=== PATIENT | male | born 1995 | race American Indian/Alaskan Native ===

== ENCOUNTER 2017-09-06 02:17 | Emergency (ER) | payer SELFPAY ==
[2017-09-06 03:16] LABS: HEMOGLOBIN 14.4 g/dL (12.0-18.0); MEAN CELL VOLUME 92.4 fl (80.0-94.0); MEAN CORPUSCULAR HEMOGLOBIN 31.6 pg (27.0-31.0); MEAN CORPUSCULAR HGB CONC 34.2 g/dL (33.0-37.0); RBC 4.55 Mil/uL (4.40-5.90); WHITE BLOOD COUNT 8.4 K/uL (4.8-10.8)
[2017-09-06 03:18] LABS: ALB/GLOB RATIO 1.1 (1.0-2.1); ALBUMIN 4.2 g/dL (3.5-5.0); ALT/SGPT 36 U/L (21-72); AST/SGOT 36 U/L (17-59); BLOOD UREA NITROGEN 10 mg/dl (9-20); CALCIUM 9.3 mg/dL (8.4-10.2); GFR AFRICAN-AMERICAN > 60; GFR NON-AFRICAN AMERICAN > 60
--- NOTE | 2017-09-06 05:33 | ED PDOC ---
HPI: General Adult Time Seen by Provider: 09/06/17 02:19 Chief Complaint (Nursing): Alcohol Ingestion Chief Complaint (Provider): Denies complaint History Per: Patient History/Exam Limitations: no limitations Onset/Duration Of Symptoms: Hrs Have you had recent travel within the past 21 days to any of the following countries: [place], [place], [place] or [place]?: No Additional Complaint(s): Pt states that he drank today and vomited inside of an ub[employer] on his was home. Pt reports having 3 beers and states that he does not drink often and is "a light weight". Pt denies drug use. Pt vomiting on arrival. Pt denies abdominal pain. Past Medical History Reviewed: Historical Data, Nursing Documentation, Vital Signs Vital Signs: Last Vital Signs Temp 98.3 F 09/06/17 05:56 Pulse 77 09/06/17 05:56 Resp 16 09/06/17 05:56 BP 139/79 09/06/17 05:56 Pulse Ox 98 09/06/17 06:09 - Medical History PMH: No Chronic Diseases, Sleep Apnea - Surgical History Surgical History: No Surg Hx - Family History Family History: States: No Known Family Hx - Living Arrangements Living Arrangements: With Family - Social History Current smoker - smoking cessation education provided: No - Allergies Allergies/Adverse Reactions: Allergies Allergy/AdvReac Type Severity Reaction Status Date / Time No Known Allergies Allergy Verified 09/06/17 02:36 Review of Systems ROS Statement: Except As Marked, All Systems Reviewed And Found Negative Constitutional: Negative for: Fever, Chills Gastrointestinal: Positive for: Nausea, Vomiting. Negative for: Abdominal Pain Genitourinary Male: Negative for: Dysuria, Frequency, Scrotal Pain Neurological: Negative for: Weakness, Numbness Physical Exam - Reviewed Nursing Documentation Reviewed: Yes Vital Signs Reviewed: Yes - Physical Exam Appears: Positive for: Well, Non-toxic, No Acute Distress Head Exam: Positive for: ATRAUMATIC, NORMAL INSPECTION, NORMOCEPHALIC Skin: Positive for: Normal Color, Warm, DRY Eye Exam: Positive for: Normal appearance ENT: Positive for: Normal ENT Inspection Neck: Positive for: Normal, Painless ROM Cardiovascular/Chest: Positive for: Regular Rate, Rhythm Respiratory: Positive for: CNT, Normal Breath Sounds Gastrointestinal/Abdominal: Positive for: Normal Exam, Soft. Negative for: Tenderness Back: Positive for: Normal Inspection Extremity: Positive for: Normal ROM Neurologic/Psych: Positive for: Alert, Oriented - Laboratory Results Result Diagrams: 09/06/17 02:58 09/06/17 02:58 - ECG O2 Sat by Pulse Oximetry: 98 Medical Decision Making Medical Decision Makin - Pt awake. Oriented with clear speech and steady gait. Disposition - Clinical Impression Clinical Impression: Alcohol abuse - Patient ED Disposition Is Patient to be Admitted: No Counseled Patient/Family Regarding: Diagnosis, Need For Followup - Disposition Disposition: Routine/Home Disposition Time: 05:34 Condition: GOOD Instructions: Effects of Alcohol on Your Health Forms: [facility] ([facility])
[2017-09-06 05:57] VITALS: BP 139/79; PULSE 77; RESP 16; TEMP 98.3
[2017-09-06 06:09] VITALS: O2SAT 98
== END 2017-09-06 06:14 | disposition home or self-care (01) ==
LOC: H.ER 02:17
DX: F10.10 Alcohol abuse, uncomplicated (principal)
CPT/HCPCS: 80053; 82948; 85027; 99283; G0480